=== PATIENT | male | born 1960 | race African-American/Black ===

== ENCOUNTER → 2020-03-21 | Outpatient (CLI) | payer OTHER, MEDICAID ==
[~2020-03-21] MED LIST: COGENTIN; DIAZ5TAB; PROZAC; TRAZEDONE; [UNRECOGNIZED DRUG - OTHER]
[2020-03-21 08:41] LABS: Urine WBC None Seen /hpf (0 - 3)
[2020-03-21 09:09] LABS: Albumin 4.3 g/dL (3.4-5.0)
[2020-03-21 09:15] LABS: BUN/Creatinine Ratio 16.5; Bilirubin, Total 0.4 mg/dL (0.2-1.0); Calcium 9.3 mg/dL (8.5-10.1); Total Protein 7.9 g/dL (6.4-8.2)
[2020-03-21 09:17] LABS: Alcohol, Urine < 3.0 mg/dL (0-10); Amphetamine Screen, Urine NEGATIVE (NEGATIVE); Barbiturate Scree,Urine NEGATIVE (NEGATIVE); Benzodiazephine Screen, Urine NEGATIVE (NEGATIVE); Cannabinoid Screen, Urine NEGATIVE (NEGATIVE); Cocaine Screen, Urine NEGATIVE (NEGATIVE); Opiate Scree,Urine NEGATIVE (NEGATIVE); Phencyclidine Screen, Urine NEGATIVE (NEGATIVE)
[2020-03-21 10:05] LABS: Urine Bacteria NONE SEEN /hpf (None Seen); Urine Blood Negative /uL (Negative); Urine Specific Gravity 1.025 (1.001-1.035)
== END | disposition home or self-care (01) ==
LOC: LAB 08:05
PROVIDERS: ATTEND Internal Medicine
DX: K76.0 Fatty (change of) liver, not elsewhere classified (principal); E78.5 Hyperlipidemia, unspecified; R73.03 Prediabetes
CPT/HCPCS: 36415; 80053; 80061; 80307; 81001; 82043; 82270; 83036

== ENCOUNTER → 2020-04-30 | Outpatient (CLI) | payer OTHER, MEDICAID | END | disposition home or self-care (01) | LOC: LAB 14:29 | PROVIDERS: ATTEND Internal Medicine | DX: M27.2 Inflammatory conditions of jaws (principal) | CPT/HCPCS: 36415; 82565; 84520 ==

== ENCOUNTER → 2020-10-30 | Outpatient (CLI) | payer OTHER, MEDICAID ==
[2020-10-30 10:17] LABS: Eosinophils # (auto) 0.2 10 ^3/uL (0-0.8); Lymphocytes # (auto) 2.7 10 ^3/uL (0.4-5.4); Neutrophils # (auto) 2.1 10 ^3/uL (1.6-8.6); Nucleated Red Blood Cells % 0.1 %
[2020-10-30 10:19] LABS: Basophils # (auto) 0.1 10 ^3/uL (0-0.2); Eosinophils % (auto) 4.1 % (0.0-7.0); Hematocrit 40.7 % (41.0-53.0); Hemoglobin 13.5 g/dL (13.5-17.5); Lymphocytes % (auto) 48.7 % (10.0-50.0); Mean Corpuscular Hemoglobin 26.3 pg (28.0-32.0); Mean Corpuscular Hgb Conc. 33.1 g/dL (32.0-36.0); Mean Corpuscular Volume 79.4 fL (80.0-100.0); Monocytes # (auto) 0.4 10 ^3/uL (0-1.3); Monocytes % (auto) 8.1 % (0.0-12.0); Neutrophils % (auto) 38.1 % (37.0-80.0); Platelet Count (auto) 360 10^3/uL (140-450); Red Blood Cells 5.12 10^6/uL (4.5-5.90); White Blood Cell 5.6 10^3/uL (4.4-10.8)
[2020-10-30 11:08] LABS: Potassium 4.2 mmol/L (3.5-5.1)
[2020-10-30 11:18] LABS: Albumin 4.3 g/dL (3.4-5.0); BUN/Creatinine Ratio 12.1; Bilirubin, Total 0.9 mg/dL (0.2-1.0); Calcium 9.6 mg/dL (8.5-10.1); Total Protein 8.3 g/dL (6.4-8.2)
== END | disposition home or self-care (01) ==
LOC: LAB 09:58
PROVIDERS: ATTEND Internal Medicine
DX: Z12.11 Encounter for screening for malignant neoplasm of colon (principal); E11.9 Type 2 diabetes mellitus without complications; E78.5 Hyperlipidemia, unspecified
CPT/HCPCS: 36415; 80053; 80061; 82043; 83036; 84153; 85025

== ENCOUNTER → 2020-11-22 | Outpatient (CLI) | payer OTHER, MEDICAID | END | disposition home or self-care (01) | LOC: LAB 15:55 | PROVIDERS: ATTEND Internal Medicine | DX: Z12.11 Encounter for screening for malignant neoplasm of colon (principal); E11.9 Type 2 diabetes mellitus without complications; E78.5 Hyperlipidemia, unspecified | CPT/HCPCS: 82270 ==

== ENCOUNTER 2024-02-07 05:07 | Emergency (ER) | payer BC, OTHER, MEDICAID ==
[~2024-02-07] VITALS: Ht 188 cm; Wt 115.2 kg
[~2024-02-07 05:07] MED LIST changes: +DIAZ-681; -DIAZ5TAB
[2024-02-07] MEDS ORDERED: IBU600T PO (07:11)
[2024-02-07 07:58] VITALS: BP 167/109; TEMP 98.7
[2024-02-07 07:59] VITALS: PULSE 98; RESP 16; O2SAT 98
[2024-02-07] MEDS: HYDROcodone-ACET 10/325MG TAB PO ONE (08:05)
== END 2024-02-07 08:12 | disposition home or self-care (01) ==
LOC: ER 05:07
DX: M19.90 Unspecified osteoarthritis, unspecified site (principal); E11.9 Type 2 diabetes mellitus without complications; I10 Essential (primary) hypertension; F17.210 Nicotine dependence, cigarettes, uncomplicated
CPT/HCPCS: 73562